=== PATIENT | female | born 1990 | race Caucasian/White ===

== ENCOUNTER 2020-10-02 11:00 | Outpatient (RCR) | payer OTHER, SELFPAY ==
--- NOTE | 2020-11-02 08:14 | MHC.PT.DC ---
[facility] [place] Office [place] Office [place] Office [address] Angel Farmer 140 [facility] [phone] F: [phone] F: [phone] F: [phone] F: [phone] Physical Therapy Discharge Report Diagnosis: Thoracic Spine Pain Date of Surgery: N/A Date of Evaluation: 07/10/20 Date of Discharge: Treatments to Date: 13 Cancellations to Date: 0 No Shows to Date: 0 Discharge Status: Independent with [facility]P Discharge Summary: Pt progressed well over the course of skilled PT making progress on impairments and functional limitations resulting in an improved quality of life. Pt is I with [facility]P and appropriate to d/c to [facility]P at this time. Electronically signed by: Aubrey Salazar, PT Please sign and return to therapist. Thank you for your referral.
== END 2020-11-02 08:15 | disposition home or self-care (01) ==
LOC: HO.PTCHIC 11:00
PROVIDERS: PCP Physician Assistant; Visit Provider Physician Assistant
DX: M54.6 Pain in thoracic spine (principal)
CPT/HCPCS: 97110; 97112

== ENCOUNTER 2021-06-26 18:14 | Outpatient (REF) | payer OTHER, SELFPAY | END 2021-06-26 18:15 | disposition home or self-care (01) | LOC: HO.LNP 18:14 | PROVIDERS: Visit Provider Internal Medicine | DX: Z20.822 Contact with and (suspected) exposure to COVID-19 (principal); J06.9 Acute upper respiratory infection, unspecified | CPT/HCPCS: U0003; U0005 ==

== ENCOUNTER 2021-09-18 08:34 | Outpatient (REF) | payer OTHER, SELFPAY ==
[2021-09-22 13:06] LABS: HPV mRNA E6/E7 rflx Not Detected (Not Detected)
== END 2021-09-18 08:35 | disposition home or self-care (01) ==
LOC: HO.LAB 08:34
PROVIDERS: PCP Physician Assistant; Visit Provider Advanced Practice Midwife
DX: Z01.419 Encounter for gynecological examination (general) (routine) without abnormal findings (principal); Z11.51 Encounter for screening for human papillomavirus (HPV)
CPT/HCPCS: 87624; 88142

== ENCOUNTER → 2022-11-12 12:42 | Outpatient (BNVA) | payer OTHER, SELFPAY | PROVIDERS: PCP Physician Assistant; Visit Provider Advanced Practice Midwife | DX: Z13.89 Encounter for screening for other disorder (principal) ==

== ENCOUNTER 2023-12-03 08:40 | Outpatient (AMB) | payer OTHER, SELFPAY ==
[2023-12-03 09:26] VITALS: BP 112/76; PULSE 99; TEMP 37.7; O2SAT 96; BMI 30.9
--- NOTE | 2023-12-03 09:26 | AM.OFFWIN_ITS ---
Intake Vital Signs 12/03/23 09:26 Height 5 ft 7 in Weight 197 lb BMI 30.9 BP 112/76 Blood Pressure Location Lt brachial Position Sitting Pulse 99 Pulse Source Pulse Oximeter Temp 99.9 F Temp Source Temporal Artery Scan Pulse Oximetry (%) 96 Intake Visit Reasons: EP fever cough headache chills 531-25 Intake Note: pt is here today for fever cough headache chills started yesterday Patient Tobacco Use Status: Former Tobacco user Quit Date: 2020 Allergies cephalexin [CEPHALEXIN] Allergy (Intermediate, Verified 12/03/23 09:51) HIVES poison marylu extract [POISON MARYLU] Allergy (Unknown, Verified 12/03/23 09:51) RASH ANTIBIOTIC Allergy (Unknown, Uncoded 12/03/23 09:51) UNKNOWN cephlosporins Allergy (Unknown, Uncoded 12/03/23 09:51) hives Medication List - Last Reconciled 12/03/23 by Jose Mina MD bupropion HCl (Wellbutrin XL) 150 mg PO QAM compr.stocking,knee,long,large As directed escitalopram oxalate (Lexapro) 20 mg PO DAILY Do you need a note to return to daycare/school/sports/work: Yes HPI EP fever cough headache chills 531-25 HPI Details 33-year-old female presents to the [facility] for a sick visit. Patient is reporting sudden onset chills, sore throat, headache. Symptoms started less than 24 hours ago. No nausea or vomiting. No family members sick. [facility] Medical History Depression with anxiety PVD (peripheral vascular disease) Surgical History Hx of tonsillectomy Family History Mother Mental health disorder COPD (chronic obstructive pulmonary disease) Colonic polyp Heart attack Father Mental health disorder Sister Colonic polyp Social History Housing: Condominium Alcohol intake: current Alcohol type: beer Patient Tobacco Use Status: Former Tobacco user Quit Date: 2020 Tobacco use type: Cigarette e-Cigarette/Vaping Use: Never Used Second Hand Smoke Exposure: No Current occupational status: employed Current occupation: [employer] Cognitive needs: No Hearing needs: No Vision needs: No Physical Exam Vital Signs: Last Vital Signs Temp 99.9 F 12/03/23 09:26 Pulse 99 12/03/23 09:26 BP 112/76 12/03/23 09:26 Pulse Ox 96 12/03/23 09:26 BMI result Body Mass Index 30.9 Const General: cooperative and healthy appearing Nutritional Appearance: well nourished Orientation/consciousness: patient oriented x3 Limitations: no limitations HEENT Head: Yes normal to inspection Eyes General: appearance normal, both eyes and all related structures Neck Neck: Yes normal visual inspection Chest Chest palpation & inspection: normal palpation of entire chest wall Resp Effort & Inspection: normal respiratory effort Neuro General: patient oriented x3 Assessment & Plan Assessment & Plan (1) Influenza: Code(s): J11.1 - Influenza due to unidentified influenza virus with other respiratory manifestations Plan: Will call with the results of the viral swab. Tamiflu called in. Tylenol for aches and pains. If symptoms not better to follow-up here. Coding Level of Care Code Est Pt Level 3 (64695) Diagnoses Influenza J11.1
== END 2023-12-03 10:23 | disposition home or self-care (01) ==
PROVIDERS: PCP Physician Assistant; Visit Provider Internal Medicine
DX: J11.1 Influenza due to unidentified influenza virus with other respiratory manifestations (principal)
CPT/HCPCS: 99213

== ENCOUNTER 2023-12-03 11:36 | Outpatient (REF) | payer OTHER, SELFPAY ==
[2023-12-03 12:37] LABS: Influenza A PCR POSITIVE (Negative); Influenza B PCR NEGATIVE (Negative); Resp Syncy Virus RNA Qual PCR NEGATIVE (Negative); SARS COV2 PCR INHOUSE NEGATIVE (Negative)
== END 2023-12-03 11:37 | disposition home or self-care (01) ==
LOC: HO.HMGCLNP 11:36
PROVIDERS: Visit Provider Internal Medicine
DX: Z11.52 Encounter for screening for COVID-19 (principal); Z20.822 Contact with and (suspected) exposure to COVID-19; R09.89 Other specified symptoms and signs involving the circulatory and respiratory systems
CPT/HCPCS: 0241U

== ENCOUNTER 2024-03-12 08:15 | Outpatient (RCR) | payer OTHER, SELFPAY ==
[2024-03-10 13:16] VITALS: BMI 33.1
[2024-03-10 13:17] VITALS: BP 120/70; PULSE 68; TEMP 37.2
--- NOTE | 2024-03-10 13:58 | PC.ADMIT ---
Patient is a 33 year old female who was referred/mandated by her employer to attend treatment for alcohol use and mental health. Patient reportedly showed up to work intoxicated 1.5 months ago. She is employed by [employer] for the past 6 years. Patient reports she binge drinks for many years and longest periods of sobriety was 6 months. Denied any history of withdrawal sxs after she abstains from drinking. Drinking 10 shots of alcohol a few times a week. Reports she takes days off. VS 120/70 P 68. No diaphoresis, no tremors, no nausea, no vomiting, no headache. She was given education written and verbal about long and short term effects of use. Also encouraged her to attend AA meetings while in the program for more support. Patient is alert and oriented x4. She presents with depressed mood and affect. Denied SI. She was given a copy of her safety plan if needed. Thoughts are clear and logical. Medications reconciled with patient and patient's pharmacy. She reports taking medications as prescribed.
--- NOTE | 2024-03-11 15:56 | HO.PHP ---
[facility] met with pt to discuss potentially going to [facility] for more extensive substance support. Pt acknowledged she may need a higher level of care for her addiction, reports she finds PHP helpful but recognizes she needs more skills and treatment around her addiction to prevent relapse. Pt provided information on [facility], stated she will think about it tonight and possibly call today or tomorrow to ask questions. Pt forthcoming about her addiction and level of cravings. Pt also considering if she will apply for FMLA so she can focus on sobriety. Pt acknowledged this is her first time seeking recovery support for her 20 year long addiction to alcohol.
--- NOTE | 2024-03-11 16:17 | HO.PHP ---
Client's case has been opened and reviewed in teams.
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
--- NOTE | 2024-03-12 11:38 | PC.NURSE ---
Odalis is discharging from [facility] today. She is going to go to [facility] starting next Friday for more support and may come back to [facility] if needed. She feels ready for discharge. No safety concerns, no SI. Reviewed discharge paperwork with discharge medications. Patient denied any medication side effects. Medication education provided.
--- NOTE | 2024-03-19 09:35 | HO.PHP ---
PHP staff member received a phone call from Eduardo at [facility] with Odalis's upcoming OP provider meetings. Odalis's Intake appointment was scheduled for March 31, 2024 at 10 AM with Elaine Trevizo at [address] [place] [address] in [place], [place]. Odalis's med provider appointment is schedueled for April 21, 2024 at 11 AM with Blossom Alarcon via telehealth. PHP staff member contacted Odalis and left a voicemail with that information. PHP staff member informed her to contact the clinician back with any additional questions.
== END 2024-03-12 23:59 | disposition home or self-care (01) ==
LOC: HO.PHPA 08:15
PROVIDERS: Visit Provider Psychiatry & Neurology Psychiatry
DX: F43.10 Post-traumatic stress disorder, unspecified (principal); F32.A Depression, unspecified; F10.20 Alcohol dependence, uncomplicated; Z63.4 Disappearance and death of family member
CPT/HCPCS: 90791; 90853

== ENCOUNTER 2024-03-29 14:58 | Outpatient (AMB) | payer OTHER, SELFPAY ==
[2024-03-29 15:12] VITALS: BP 114/74; PULSE 83; O2SAT 97; BMI 32.3
--- NOTE | 2024-03-29 15:12 | MHC.PC.OV ---
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 Accompanied by: Self / Same As Patient Allergies cephalexin [CEPHALEXIN] Allergy (Intermediate, Verified 03/29/24 15:31) HIVES poison marylu extract [POISON MARYLU] Allergy (Unknown, Verified 03/29/24 15:31) RASH ANTIBIOTIC Allergy (Unknown, Uncoded 03/29/24 15:31) UNKNOWN cephlosporins Allergy (Unknown, Uncoded 03/29/24 15:31) hives Medication List - Last Reconciled 03/29/24 by Emmanuel Grey PA-C bupropion HCl XL (Wellbutrin XL) 150 mg PO QAM escitalopram oxalate (Lexapro) 20 mg PO DAILY naltrexone 50 mg PO .HS Tobacco use date assessed: 03/29/24 Dental Screening Dental Screen Date: 03/29/24 Did you have a dental visit in the last 12 months?: Yes Did you have a dental problem in the last 6 months where you did not have access to dental care?: No Was dental information given to patient?: Patient has dentist HPI Annual exam/med review HPI Details Patient is a 33-year-old female here today for routine annual physical.? Patient has a past medical history significant for generalized anxiety disorder, polyarthralgia. Alcohol use disorder: recently had a relapse and now is 21 days sober. Now in outpatient program seeking help for alcohol use disorder. Now on naltrexone which has been very effective for her .. Anxiety: Has restarted on Lexapro for her anxiety which has been working well to reduce her anxious symptoms. She is speaking with a mental therapist. .. Obese : Noted weight gain since restarting SSRI therapy. She does understand she needs to be more physically active and adapt to better eating habits to reduce her weight. .. 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 declines COVID vaccine. Declines flu vaccine PFSH Medical History PVD (peripheral vascular disease) Depression with anxiety Surgical History Hx of tonsillectomy Family History Mother Mental health disorder COPD (chronic obstructive pulmonary disease) Colonic polyp Heart attack Father Mental health disorder Sister Colonic polyp Social History (Updated 03/29/24 @ 15:36 by Emmanuel Grey PA-C) Household Members: Significant Other and Children [facility] Alcohol intake: former Year quit: 2023 Patient Tobacco Use Status: Former Tobacco user Tobacco use type: Cigarette Cigarettes Per Day: 2 e-Cigarette/Vaping Use: Never Used Second Hand Smoke Exposure: No Current occupational status: employed Current occupation: [employer] Cognitive needs: No Hearing needs: No Vision needs: No Questionnaire PHQ-9 Over the last 2 weeks, how often have you been bothered by any of the following problems? 1. Little interest or pleasure in doing things: not at all 2. Feeling down, depressed, or hopeless: not at all 3. Trouble falling or staying asleep, or sleeping too much: not at all 4. Feeling tired or having little energy: not at all 5. Poor appetite or overeating: not at all 6. Feeling bad about yourself - or that you are a failure or have let yourself or your family down: not at all 7. Trouble concentrating on things, such as reading the newspaper or watching television: several days 8. Moving or speaking so slowly that other people could have noticed. Or the opposite - being so fidgety or restless that you have been moving around a lot more than usual: several days 9. Thoughts that you would be better off or of hurting yourself in some way: not at all Total score: 2 Depression Screening Interpretation: Positive Depression Screening Done: Yes 16883 - PHQ-9 Billing: Yes Source: Developed by Drs. Alonzo Green, Susi Garcia, Sathish Mcclain and colleagues, with an educational suly from [employer]. Thrive Questionnaire Date Thrive assessed: 03/29/24 I am a: Patient What is your living situation today?: I have a steady place to live Within the past 12 months, did the food you bought not last and you didn't have the money to get more?: Never true Within the past 12 months, did you worry whether your food would run out before you got money to buy more?: Never true Do you have trouble paying for medicines?: No Do you have trouble getting transportation to medical appointments?: No Do you have trouble paying your heating and electricity bill?: No Do you have trouble taking care of your child, family member or friend?: No Do you have trouble with day-to-day activities such as bathing, preparing meals, shopping, managing finances, etc.?: No Are you currently unemployed and looking for a job?: No Are you interested in more education?: No Please select the resources that you would like help with: None Currently or been in a relationship where the following occur: no concerns reported THRIVE Score: 0 AUDIT C Alcohol Use Questionnaire (AUDIT-C) 1. How often do you have a drink containing alcohol?: Never Total Score: 0 PERRY-7 AMB Questionnaire PERRY-7 Date PERRY - 7 assessed: 03/29/24 Feeling nervous, anxious, or on edge: 1 = Several days Not being able to stop or control worryin = Not at all Worrying too much about different things: 0 = Not at all Trouble relaxin = Several days Being so restless that it is hard to sit still: 1 = Several days Becoming easily annoyed or irritable: 0 = Not at all Feeling afraid as if something awful might happen: 0 = Not at all Total PERRY-7 score (0-4 normal; 5-9 mild; 10-14 moderate; 15-21 severe): 3 Source: Developed by Drs. Alonzo Green, Susi Garcia, Sathish Mcclain and colleagues, with an educational suly from [employer]. PERRY-7 Assessment Billing PERRY-7 Assessment Tool: PERRY-7 Assessment 12293 Review of Systems Const Denies body aches, Denies chills, Denies excessive sweating, Denies fatigue, Denies fever(s) and Denies headache(s) Eyes Denies blurry vision ENT Denies dysphagia, Denies vertigo, Denies dizziness, Denies headache(s), Denies hearing loss and Denies tinnitus Card Denies chest pain, Denies chest pain with activity, Denies syncope, Denies irregular heart rhythm and Denies dyspnea Resp Denies chest congestion, Denies cough, Denies hemoptysis, Denies dyspnea and Denies wheezing GI Denies abdominal pain, Denies melena, Denies hematochezia, Denies coffee ground emesis, Denies dysphagia, Denies diarrhea, Denies nausea and Denies vomiting Denies urinary frequency, Denies dysuria, Denies urinary hesitancy and Denies urinary urgency Musc Denies arthralgias, Denies limited range of motion, Denies muscle cramps and Denies muscle weakness Skin/Breast Denies rash and Denies skin ulcer Neuro Denies Abnormal speech present, Denies confusion, Denies vertigo, Denies dizziness, Denies syncope, Denies headache(s), Denies memory loss and Denies seizure-like activity Psych Denies anxiety, Denies confusion, Denies depression, Denies memory loss, Denies panic attacks and Denies paranoia Endo Denies excessive sweating, Denies fatigue, Denies flushing, Denies polydipsia and Denies polyuria Aller/Immun Denies wheezing Physical exam (Primary Care) Vital Signs: Last Vital Signs Pulse 83 03/29/24 15:12 BP 114/74 03/29/24 15:12 Pulse Ox 97 03/29/24 15:12 Oxygen Delivery Method Room Air 03/29/24 15:12 BMI result Body Mass Index 32.3 Tobacco/Smoking Status: Tobacco use Status Tobacco use date assessed 03/29/24 03/29/24 15:21 Patient Tobacco Use Status Former Tobacco user 03/29/24 15:36 Tobacco use type Cigarette 03/29/24 15:36 e-Cigarette/Vaping Use Never Used 03/29/24 15:36 PHQ-9: PHQ-9 Score PHQ-9: Total score 2 03/29/24 15:33 Depression Screening Interpretation: Positive Thrive Assessment: Date of Thrive Assessment Date Thrive assessed 03/29/24 03/29/24 15:21 Currently or been in a relationship where the following occur: no concerns reported Const General: cooperative, comfortable, no acute distress, alert and awake; No confusion Orientation/consciousness: oriented to person, oriented to place, patient oriented x3 and No confusion HENMT Head: Yes normocephalic Ears: external ears normal and TM's normal bilaterally Face and sinus: No sinus tenderness Mouth: Normal oral and palatal mucosa present and tongue normal Teeth and gingiva: dentition normal and gingiva normal Throat: Yes posterior oropharynx normal, Yes tonsils normal and Yes uvula midline Eyes Conjunctivae: conjunctivae normal Sclerae: sclerae normal Pupils: Equal, round and reactive pupils present EOM: EOMs intact bilaterally Direct Ophthalmoscopy: No no photophobia Neck Neck: Yes no lymphadenopathy, No tender and Yes no JVD Thyroid: Thyroid normal Carotids: no bruits Chest Chest palpation & inspection: no tenderness Resp Effort & Inspection: normal respiratory effort, no audible wheezes, not labored and no stridor Auscultation: no crackles, no rales, no rhonchi and no wheezes Cardio Jugular venous distension: no JVD Rate: regular rate, not bradycardic and not tachycardic Rhythm: regular rhythm Bruits: no carotid bruits Peripheral pulses: Peripheral pulses 2+ throughout GI Inspection: Yes normal to inspection, No abdominal wall ecchymosis and No visible herniation Palpation (GI): Soft to palpation, nontender, no guarding, not rigid and No hepatosplenomegaly present Auscultation: normoactive bowel sounds General: Yes no CVA tenderness Back/Spine/Pelvis Back: no CVA tenderness and No back tenderness Cervical Spine: cervical ROM normal Thoracic/Lumbar Spine: thoracic and lumbar spine normal to inspection, straight leg raise negative bilaterally, No thoraco-lumbar ROM limited and No lumbar spinal tenderness Skin Lesions: no lesions Rashes: no rashes Wounds: no wounds Neuro General: oriented to person, oriented to place, patient oriented x3, CN's II-XI intact bilaterally and No confusion Cranial nerves: Yes Equal, round and reactive pupils present and Yes Normal accommodation reflex present Cognition (Neuro): normal cognition Speech: No Abnormal speech present Gait exam (Neuro): Normal gait present Motor exam (neuro): 5/5 motor strength present throughout Extrem Right upper extremity: full ROM; no cyanosis Left upper extremity: full ROM; no cyanosis Right lower extremity: no edema Left lower extremity: no edema Psych Appearance: grossly normal Mental Status: mental status grossly normal Affect: normal affect Attitude: cooperative Thought process: Normal thought process present Assessment and Plan Assessment & Plan (1) Annual physical exam: Code(s): Z00.00 - Encounter for general adult medical examination without abnormal findings (2) MDD (major depressive disorder), recurrent episode, moderate: Code(s): F33.1 - Major depressive disorder, recurrent, moderate Plan: Patient's PHQ-9 score positive for moderate depression which has been in long-term condition for her. Patient reports her depression has been much better since starting with Wellbutrin. Denies any SI or HI (3) PERRY (generalized anxiety disorder): Code(s): F41.1 - Generalized anxiety disorder Plan: Patient's PERRY-7 score positive for anxiety which has been an long-term existing condition for her. She continues on SSRI therapy recent addition of Wellbutrin which has helped her anxiety a lot. (4) Obese: Code(s): E66.9 - Obesity, unspecified Qualifiers: Body mass index: BMI 31.0-31.9 Obesity classification: adult class 1 (BMI 30 - 34.9) Obesity type: due to excess calories Serious obesity comorbidity presence: without serious comorbidity Qualified Code(s): E66.09 - Other obesity due to excess calories; Z68.31 - Body mass index [BMI] 31.0-31.9, adult Plan: Weight loss noted since last office visit. Patient does understand her BMI is over 30 and will work on being more physically active and adapting to better eating habits to reduce her weight. (5) PVD (peripheral vascular disease): Code(s): I73.9 - Peripheral vascular disease, unspecified Plan: Patient does have left lower extremity varicose veins that are not bothersome to her though anesthetics is a problem. She is considering seeing a vascular surgeon. (6) Alcohol use disorder, moderate, dependence: Code(s): F10.20 - Alcohol dependence, uncomplicated Plan: Recently had relapse on alcohol now is in early remission. She is now on naltrexone and going to an outpatient alcohol treatment center. Orders: Orders Ethanol 03/29/24 F10.20 - Alcohol dependence, uncomplicated Comprehensive [place]. Panel Fast 03/29/24 Z13.1 - Encounter for screening for diabetes mellitus Medications: Refilled bupropion HCl XL (Wellbutrin XL) 150 mg PO QAM 30 tabs 6RF F33.1 - Major depressive disorder, recurrent, moderate, F41.1 - Generalized anxiety disorder Patient Instructions: Goal: Maintain sobriety from alcohol, continue to manage her depression and anxiety Barriers: Availability of alcohol. Coding Level of Care Code Est Pt Prev Care [id number]) Diagnoses Annual physical exam Z00.00 MDD (major depressive disorder), recurrent episode, moderate F33.1 PERRY (generalized anxiety disorder) F41.1 Class 1 obesity due to excess calories without serious comorbidity with body mass index (BMI) of 31.0 to 31.9 in adult E66.09; Z68.31 Body mass index: BMI 31.0-31.9 Obesity classification: adult class 1 (BMI 30 - 34.9) Obesity type: due to excess calories Serious obesity comorbidity presence: without serious comorbidity PVD (peripheral vascular disease) I73.9 Alcohol use disorder, moderate, dependence F10.20 Additional Codes PERRY-7 Assessment Billing - PERRY-7 Assessment Tool: PERRY-7 Assessment [id number] ([id number])
== END 2024-03-29 15:46 | disposition home or self-care (01) ==
PROVIDERS: PCP Physician Assistant; Visit Provider Physician Assistant
DX: Z00.00 Encounter for general adult medical examination without abnormal findings (principal); F33.1 Major depressive disorder, recurrent, moderate; I73.9 Peripheral vascular disease, unspecified; E66.01 Morbid (severe) obesity due to excess calories; F10.20 Alcohol dependence, uncomplicated; Z68.31 Body mass index [BMI] 31.0-31.9, adult; F41.1 Generalized anxiety disorder
CPT/HCPCS: 99395

== ENCOUNTER 2024-11-01 10:56 | Outpatient (AMB) | payer OTHER, SELFPAY ==
--- NOTE | 2024-11-01 11:18 | MHC.PC.OV ---
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 Accompanied by: Self / Same As Patient Allergies cephalexin [CEPHALEXIN] Allergy (Intermediate, Verified 11/01/24 11:46) HIVES poison marylu extract [POISON MARYLU] Allergy (Unknown, Verified 11/01/24 11:46) RASH ANTIBIOTIC Allergy (Unknown, Uncoded 11/01/24 11:46) UNKNOWN cephlosporins Allergy (Unknown, Uncoded 11/01/24 11:46) hives Medication List - Last Reconciled 11/01/24 by Emmanuel Grey PA-C bupropion HCl XL (Wellbutrin XL) 150 mg PO QAM escitalopram oxalate (Lexapro) 20 mg PO DAILY naltrexone 50 mg PO .QHS 30 days Tobacco use date assessed: 11/01/24 Dental Screening Dental Screen Date: 11/01/24 Did you have a dental visit in the last 12 months?: Yes Did you have a dental problem in the last 6 months where you did not have access to dental care?: No Was dental information given to patient?: Patient has dentist HPI f/u anxiety/ETOH HPI Details Patient is a 34-year-old female here today for a follow-up visit. ? Patient has a past medical history significant for generalized anxiety disorder, polyarthralgia. Alcohol use disorder: recently had a relapse and now is a few weeks sober.. She has graduated from outpatient alcohol use disorder program.. Continues on naltrexone which has been very effective for her .. Anxiety: Has restarted on Lexapro for her anxiety which has been working well to reduce her anxious symptoms. She is speaking with a mental therapist. .. Obese : Noted weight gain since restarting SSRI therapy. She does understand she needs to be more physically active and adapt to better eating habits to reduce her weight. FOR[facility]LY [facility], [facility] Medical History PVD (peripheral vascular disease) Depression with anxiety Surgical History Hx of tonsillectomy Family History Mother Mental health disorder COPD (chronic obstructive pulmonary disease) Colonic polyp Heart attack Father Mental health disorder Sister Colonic polyp Social History Household Members: Significant Other and Children [facility] Alcohol intake: former Year quit: 2023 Patient Tobacco Use Status: Former Tobacco user Tobacco use type: Cigarette Cigarettes Per Day: 2 e-Cigarette/Vaping Use: Never Used Second Hand Smoke Exposure: No service: No Current occupational status: employed Current occupation: [employer] Cognitive needs: No Hearing needs: No Vision needs: No Questionnaire PHQ-9 Over the last 2 weeks, how often have you been bothered by any of the following problems? 1. Little interest or pleasure in doing things: not at all 2. Feeling down, depressed, or hopeless: not at all 3. Trouble falling or staying asleep, or sleeping too much: not at all 4. Feeling tired or having little energy: not at all 5. Poor appetite or overeating: not at all 6. Feeling bad about yourself - or that you are a failure or have let yourself or your family down: not at all 7. Trouble concentrating on things, such as reading the newspaper or watching television: not at all 8. Moving or speaking so slowly that other people could have noticed. Or the opposite - being so fidgety or restless that you have been moving around a lot more than usual: not at all 9. Thoughts that you would be better off or of hurting yourself in some way: not at all Total score: 0 Depression Screening Interpretation: Negative Depression Screening Done: Yes 08038 - PHQ-9 Billing: Yes Source: Developed by Drs. Alonzo Green, Susi Garcia, Sathish Mcclain and colleagues, with an educational suly from [employer]. Thrive Questionnaire Date Thrive assessed: 11/01/24 I am a: Patient What is your living situation today?: I have a steady place to live Within the past 12 months, did the food you bought not last and you didn't have the money to get more?: Never true Within the past 12 months, did you worry whether your food would run out before you got money to buy more?: Never true Do you have trouble paying for medicines?: No Do you have trouble getting transportation to medical appointments?: No Do you have trouble paying your heating and electricity bill?: No Do you have trouble taking care of your child, family member or friend?: No Do you have trouble with day-to-day activities such as bathing, preparing meals, shopping, managing finances, etc.?: No Are you currently unemployed and looking for a job?: No Are you interested in more education?: No Please select the resources that you would like help with: None Currently or been in a relationship where the following occur: No concerns reported THRIVE Score: 0 AUDIT C Alcohol Use Questionnaire (AUDIT-C) 1. How often do you have a drink containing alcohol?: Never 3. How often do you have six or more drinks on one occasion?: Never Total Score: 0 PERRY-7 AMB Questionnaire PERRY-7 Date PERRY - 7 assessed: 11/01/24 Feeling nervous, anxious, or on edge: 0 = Not at all Not being able to stop or control worryin = Not at all Worrying too much about different things: 0 = Not at all Trouble relaxin = Not at all Being so restless that it is hard to sit still: 0 = Not at all Becoming easily annoyed or irritable: 0 = Not at all Feeling afraid as if something awful might happen: 0 = Not at all Total PERRY-7 score (0-4 normal; 5-9 mild; 10-14 moderate; 15-21 severe): 0 Source: Developed by Drs. Alonzo Green, Susi Garcia, Sathish Mcclain and colleagues, with an educational suly from [employer]. PERRY-7 Assessment Billing PERRY-7 Assessment Tool: PERRY-7 Assessment 25716 Review of Systems Const Denies headache(s) Eyes Denies loss of vision ENT Denies vertigo, Denies dizziness, Denies headache(s) and Denies sore throat Card Denies chest pain, Denies leg edema and Denies lightheadedness Resp Denies cough, Denies hemoptysis and Denies wheezing GI Denies abdominal pain, Denies melena, Denies constipation, Denies diarrhea and Denies vomiting Denies urinary frequency, Denies dysuria and Denies urinary urgency Musc Denies arthralgias, Denies joint swelling, Denies numbness and Denies tingling Neuro Denies Abnormal speech present, Denies behavioral changes, Denies vertigo, Denies dizziness, Denies headache(s), Denies loss of vision, Denies memory loss, Denies numbness and Denies tingling Psych Denies anxiety, Denies behavioral changes, Denies depression, Denies memory loss and Denies panic attacks Kenney/Lymph Denies easy bleeding and Denies easy bruising Aller/Immun Denies wheezing Physical exam (Primary Care) Vital Signs: Last Vital Signs Temp 97.1 F 11/01/24 11:21 Pulse 68 11/01/24 11:21 BP 112/76 11/01/24 11:21 Pulse Ox 98 11/01/24 11:21 Oxygen Delivery Method Room Air 11/01/24 11:21 BMI result Body Mass Index 32.9 BMI Assessment/Plan discussion: High BMI High, discussed plan: lifestyle, weight reduction, dietary and physical activity Tobacco/Smoking Status: Tobacco use Status Tobacco use date assessed 11/01/24 11/01/24 11:27 Patient Tobacco Use Status Former Tobacco user 11/01/24 11:19 Tobacco use type Cigarette 11/01/24 11:19 e-Cigarette/Vaping Use Never Used 11/01/24 11:19 PHQ-9: PHQ-9 Score PHQ-9: Total score 0 11/01/24 11:27 Depression Screening Interpretation: Negative Thrive Assessment: Date of Thrive Assessment Date Thrive assessed 11/01/24 11/01/24 11:27 Currently or been in a relationship where the following occur: No concerns reported Const General: healthy appearing, no acute distress, alert and awake Nutritional Appearance: well nourished Orientation/consciousness: oriented to person, oriented to place and oriented to time HENMT Ears: TM's normal bilaterally General nose exam: Normal nasal mucous membranes and turbinates present Eyes Conjunctivae: conjunctivae normal Sclerae: sclerae normal Pupils: Equal, round and reactive pupils present Neck Neck: Yes no lymphadenopathy and Yes no JVD Thyroid: Thyroid normal Carotids: no bruits Resp Effort & Inspection: normal respiratory effort and not tachypneic Auscultation: no crackles, no rales, no rhonchi and no wheezes Cardio Rate: regular rate Rhythm: regular rhythm Heart sounds: no murmurs and normal S1 and S2 GI Palpation (GI): Soft to palpation, nontender, no hepatomegaly and no splenomegaly Auscultation: normal bowel sounds Skin General skin exam: no rashes or lesions noted and dry skin Neuro General: oriented to person, oriented to place and oriented to time Cranial nerves: Yes Equal, round and reactive pupils present Speech: No Abnormal speech present Gait exam (Neuro): Normal gait present Motor exam (neuro): no tremor noted Extrem Right upper extremity: full ROM Left upper extremity: full ROM Right lower extremity: full ROM; no edema Left lower extremity: full ROM; no edema Psych Mental Status: mental status grossly normal Speech and movement: Normal speech and movement present Affect: normal affect Attitude: cooperative Thought process: Normal thought process present Coding Level of Care Code Est Pt Level 4 (52842) Diagnoses PERRY (generalized anxiety disorder) F41.1 Alcohol use disorder, moderate, dependence F10.20 MDD (major depressive disorder), recurrent episode, moderate F33.1 Class 1 obesity E66.811 Additional Codes PERRY-7 Assessment Billing - PERRY-7 Assessment Tool: PERRY-7 Assessment 92194 ([id number]) PHQ-9 - 12852 - PHQ-9 Billing: Yes ([id number]) Assessment & Plan Assessment & Plan (1) PERRY (generalized anxiety disorder): Code(s): F41.1 - Generalized anxiety disorder Category: Medical Plan: Patient reports her anxiety and depression has been well controlled with current doses of mental health medications. She is speaking with a mental health therapist quite regularly. (2) Alcohol use disorder, moderate, dependence: Code(s): F10.20 - Alcohol dependence, uncomplicated Category: Medical Plan: Has been in remission though relapses from time to time. She reports being an alcohol group she recently graduated from. She continues with naltrexone as well. (3) MDD (major depressive disorder), recurrent episode, moderate: Code(s): F33.1 - Major depressive disorder, recurrent, moderate Category: Medical Plan: Patient's depression has been well controlled on current doses of mental health medications. She does speak with a mental health therapist quite regularly. (4) Class 1 obesity: Code(s): E66.811 - Obesity, class 1 Category: Medical Plan: Patient does understand her BMI is over 30 and will work on being more physically active and adapting to better eating habits to reduce her weight
[2024-11-01 11:21] VITALS: BP 112/76; PULSE 68; TEMP 36.2; O2SAT 98; BMI 32.9
== END 2024-11-01 11:54 | disposition home or self-care (01) ==
PROVIDERS: PCP Physician Assistant; Visit Provider Physician Assistant
DX: F33.1 Major depressive disorder, recurrent, moderate (principal); F10.20 Alcohol dependence, uncomplicated; E66.811 Obesity, class 1; Z68.32 Body mass index [BMI] 32.0-32.9, adult; F41.1 Generalized anxiety disorder

== ENCOUNTER → 2024-11-01 10:56 | Outpatient (BNVA) | payer OTHER, SELFPAY | PROVIDERS: PCP Physician Assistant; Visit Provider Physician Assistant | DX: F41.1 Generalized anxiety disorder (principal); F33.1 Major depressive disorder, recurrent, moderate; E66.811 Obesity, class 1; Z68.32 Body mass index [BMI] 32.0-32.9, adult; F10.20 Alcohol dependence, uncomplicated; Z79.899 Other long term (current) drug therapy | CPT/HCPCS: 96127 ==

== ENCOUNTER 2025-03-30 09:21 | Outpatient (AMB) | payer OTHER, SELFPAY ==
--- NOTE | 2025-03-30 09:27 | A.OFFPC_ITS ---
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 Patient has a past medical history significant for generalized anxiety disorder, polyarthralgia. Alcohol use disorder: Patient reports she is still drinking a few times a week. Has had a history of severe alcohol use disorder. She is not taking any medications for her mental health at this time. .. Anxiety: Again not taking any medication for her mental health at this time. She reports she feels better. She feels she is less numb . Continues to speak with a mental health therapist quite regularly. .. Class 1 obesity: Has lost weight since last office visit, likely related to stopping her mental health medication. 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 declines COVID vaccine. Declines flu vaccine PFSH Medical History PVD (peripheral vascular disease) Depression with anxiety Surgical History Hx of tonsillectomy Family History Mother Mental health disorder COPD (chronic obstructive pulmonary disease) Colonic polyp Heart attack Father Mental health disorder Sister Colonic polyp Social History (Updated 03/30/25 @ 10:01 by Emmanuel Grey PA-C) Household Members: Significant Other and Children Housing: Condominium Alcohol intake: current Alcohol intake frequency: a few times a week Patient Tobacco Use Status: Current someday Tobacco user Tobacco use type: Cigarette Cigarettes Per Day: 2 e-Cigarette/Vaping Use: Never Used Second Hand Smoke Exposure: No service: No Current occupational status: employed Current occupation: [employer] Cognitive needs: No Hearing needs: No Vision needs: No Questionnaire PHQ-9 Over the last 2 weeks, how often have you been bothered by any of the following problems? 1. Little interest or pleasure in doing things: not at all 2. Feeling down, depressed, or hopeless: not at all 3. Trouble falling or staying asleep, or sleeping too much: not at all 4. Feeling tired or having little energy: several days 5. Poor appetite or overeating: not at all 6. Feeling bad about yourself - or that you are a failure or have let yourself or your family down: not at all 7. Trouble concentrating on things, such as reading the newspaper or watching television: several days 8. Moving or speaking so slowly that other people could have noticed. Or the opposite - being so fidgety or restless that you have been moving around a lot more than usual: not at all 9. Thoughts that you would be better off or of hurting yourself in some way: not at all Total score: 2 Depression Screening Interpretation: Negative Depression Screening Done: Yes 70583 - PHQ-9 Billing: Yes Source: Developed by Drs. Alonzo Green, Susi Garcia, Sathish Mcclain and colleagues, with an educational suly from [employer]. Thrive Questionnaire Date Thrive assessed: 03/30/25 I am a: Patient What is your living situation today?: I have a steady place to live Within the past 12 months, did the food you bought not last and you didn't have the money to get more?: Never true Within the past 12 months, did you worry whether your food would run out before you got money to buy more?: Never true Do you have trouble paying for medicines?: No Do you have trouble getting transportation to medical appointments?: No Do you have trouble paying your heating and electricity bill?: No Do you have trouble taking care of your child, family member or friend?: No Do you have trouble with day-to-day activities such as bathing, preparing meals, shopping, managing finances, etc.?: No Are you currently unemployed and looking for a job?: No Are you interested in more education?: No Please select the resources that you would like help with: None Currently or been in a relationship where the following occur: No concerns reported THRIVE Score: 0 AUDIT C Alcohol Use Questionnaire (AUDIT-C) 1. How often do you have a drink containing alcohol?: Monthly or less 2. How many drinks containing alcohol do you have on a typical day when you are drinking?: 5 or 6 3. How often do you have six or more drinks on one occasion?: Monthly Total Score: 5 PERRY-7 AMB Questionnaire PERRY-7 Date PERRY - 7 assessed: 03/30/25 Feeling nervous, anxious, or on edge: 0 = Not at all Not being able to stop or control worryin = Not at all Worrying too much about different things: 0 = Not at all Trouble relaxin = Not at all Being so restless that it is hard to sit still: 0 = Not at all Becoming easily annoyed or irritable: 0 = Not at all Feeling afraid as if something awful might happen: 0 = Not at all Total PERRY-7 score (0-4 normal; 5-9 mild; 10-14 moderate; 15-21 severe): 0 Source: Developed by Drs. Alonzo Green, Susi Garcia, Sathish Mcclain and colleagues, with an educational suly from [employer]. PERRY-7 Assessment Billing PERRY-7 Assessment Tool: PERRY-7 Assessment 70061 Review of Systems Const Denies body aches, Denies chills, Denies excessive sweating, Denies fatigue, Denies fever(s) and Denies headache(s) Eyes Denies blurry vision ENT Denies dysphagia, Denies vertigo, Denies dizziness, Denies headache(s), Denies hearing loss and Denies tinnitus Card Denies chest pain, Denies chest pain with activity, Denies syncope, Denies irregular heart rhythm and Denies dyspnea Resp Denies chest congestion, Denies cough, Denies hemoptysis, Denies dyspnea and Denies wheezing GI Denies abdominal pain, Denies melena, Denies hematochezia, Denies coffee ground emesis, Denies dysphagia, Denies diarrhea, Denies nausea and Denies vomiting Denies urinary frequency, Denies dysuria, Denies urinary hesitancy and Denies urinary urgency Musc Denies arthralgias, Denies limited range of motion, Denies muscle cramps and Denies muscle weakness Skin/Breast Denies rash and Denies skin ulcer Neuro Denies Abnormal speech present, Denies confusion, Denies vertigo, Denies dizziness, Denies syncope, Denies headache(s), Denies memory loss and Denies seizure-like activity Psych Denies anxiety, Denies confusion, Denies depression, Denies memory loss, Denies panic attacks and Denies paranoia Endo Denies excessive sweating, Denies fatigue, Denies flushing, Denies polydipsia and Denies polyuria Aller/Immun Denies wheezing Physical exam (Primary Care) Vital Signs: Last Vital Signs Temp 97.3 F 03/30/25 09:47 Pulse 72 03/30/25 09:47 BP 110/70 03/30/25 09:47 Pulse Ox 98 03/30/25 09:47 Oxygen Delivery Method Room Air 03/30/25 09:47 BMI result Body Mass Index 31.9 BMI Assessment/Plan discussion: High BMI High, discussed plan: lifestyle, weight reduction, dietary and physical activity Tobacco/Smoking Status: Tobacco use Status Tobacco use date assessed 11/01/24 03/30/25 09:27 Patient Tobacco Use Status Former Tobacco user 03/30/25 09:27 Tobacco use type Cigarette 03/30/25 09:27 e-Cigarette/Vaping Use Never Used 03/30/25 09:27 PHQ-9: PHQ-9 Score PHQ-9: Total score 2 03/30/25 09:31 Depression Screening Interpretation: Negative Thrive Assessment: Date of Thrive Assessment Date Thrive assessed 03/30/25 03/30/25 09:31 Currently or been in a relationship where the following occur: No concerns reported Const General: cooperative, comfortable, no acute distress, alert and awake; No confusion Orientation/consciousness: oriented to person, oriented to place, patient oriented x3 and No confusion HENMT Head: Yes normocephalic Ears: external ears normal and TM's normal bilaterally Face and sinus: No sinus tenderness Mouth: Normal oral and palatal mucosa present and tongue normal Teeth and gingiva: dentition normal and gingiva normal Throat: Yes posterior oropharynx normal, Yes tonsils normal and Yes uvula midline Eyes Conjunctivae: conjunctivae normal Sclerae: sclerae normal Pupils: Equal, round and reactive pupils present EOM: EOMs intact bilaterally Direct Ophthalmoscopy: No no photophobia Neck Neck: Yes no lymphadenopathy, No tender and Yes no JVD Thyroid: Thyroid normal Carotids: no bruits Chest Chest palpation & inspection: no tenderness Resp Effort & Inspection: normal respiratory effort, no audible wheezes, not labored and no stridor Auscultation: no crackles, no rales, no rhonchi and no wheezes Cardio Jugular venous distension: no JVD Rate: regular rate, not bradycardic and not tachycardic Rhythm: regular rhythm Bruits: no carotid bruits Peripheral pulses: Peripheral pulses 2+ throughout GI Inspection: Yes normal to inspection, No abdominal wall ecchymosis and No visible herniation Palpation (GI): Soft to palpation, nontender, no guarding, not rigid and No hepatosplenomegaly present Auscultation: normoactive bowel sounds General: Yes no CVA tenderness Back/Spine/Pelvis Back: no CVA tenderness and No back tenderness Cervical Spine: cervical ROM normal Thoracic/Lumbar Spine: thoracic and lumbar spine normal to inspection, straight leg raise negative bilaterally, No thoraco-lumbar ROM limited and No lumbar spinal tenderness Skin Lesions: no lesions Rashes: no rashes Wounds: no wounds Neuro General: oriented to person, oriented to place, patient oriented x3, CN's II-XI intact bilaterally and No confusion Cranial nerves: Yes Equal, round and reactive pupils present and Yes Normal accommodation reflex present Cognition (Neuro): normal cognition Speech: No Abnormal speech present Gait exam (Neuro): Normal gait present Motor exam (neuro): 5/5 motor strength present throughout Extrem Right upper extremity: full ROM; no cyanosis Left upper extremity: full ROM; no cyanosis Right lower extremity: no edema Left lower extremity: no edema Psych Appearance: grossly normal Mental Status: mental status grossly normal Affect: normal affect Attitude: cooperative Thought process: Normal thought process present Coding Level of Care Code Est Pt Prev Care 18-39y(83962) Diagnoses Annual physical exam Z00.00 PERRY (generalized anxiety disorder) F41.1 Alcohol use disorder, moderate, dependence F10.20 MDD (major depressive disorder), recurrent episode, moderate F33.1 Class 1 obesity E66.811 Additional Codes PERRY-7 Assessment Billing - PERRY-7 Assessment Tool: PERRY-7 Assessment 84794 ([id number]) PHQ-9 - 37901 - PHQ-9 Billing: Yes ([id number]) Assessment & Plan Assessment & Plan (1) Annual physical exam: Code(s): Z00.00 - Encounter for general adult medical examination without abnormal findings Category: Medical Plan: As per HPI (2) PERRY (generalized anxiety disorder): Code(s): F41.1 - Generalized anxiety disorder Category: Medical Plan: Patient is seeing a mental health therapist quite regularly. She is now off of all of her psychiatric medication as she self discontinued. She reports she feels well without the medication. (3) Alcohol use disorder, moderate, dependence: Code(s): F10.20 - Alcohol dependence, uncomplicated Category: Medical Plan: Patient has a history of alcohol use disorder, she still reports drinking though a lot last. She is now off of all of her med telehealth medications at this time and reports feeling better. -- >Warned her about alcoholism being a slippery slope and she does understand and will try to manage her drinking. (4) MDD (major depressive disorder), recurrent episode, moderate: Code(s): F33.1 - Major depressive disorder, recurrent, moderate Category: Medical Plan: Again patient is seeing a mental health therapist quite regularly. She is off of her depression medication at this time and reports feeling much better. (5) Class 1 obesity: Code(s): E66.811 - Obesity, class 1 Category: Medical Plan: Patient does understand her BMI is over 30 and will work on being more physically active and adapting to better eating habits to reduce her weight Orders: Orders TSH reflex Free T4 Today E66.811 - Obesity, class 1 Comprehensive [place]. Panel Fast Today Z13.1 - Encounter for screening for diabetes mellitus Complete Blood Count no Diff Today Z13.1 - Encounter for screening for diabetes mellitus
[2025-03-30 09:47] VITALS: BP 110/70; PULSE 72; TEMP 36.3; O2SAT 98; BMI 31.9
== END 2025-03-30 10:15 | disposition home or self-care (01) ==
LOC: HO.HMCH 09:22
PROVIDERS: PCP Physician Assistant; Visit Provider Physician Assistant
DX: Z00.00 Encounter for general adult medical examination without abnormal findings (principal); F10.20 Alcohol dependence, uncomplicated; F33.1 Major depressive disorder, recurrent, moderate; E66.811 Obesity, class 1; Z68.31 Body mass index [BMI] 31.0-31.9, adult; F41.1 Generalized anxiety disorder

== ENCOUNTER → 2025-03-30 09:21 | Outpatient (BNVA) | payer OTHER, SELFPAY | PROVIDERS: PCP Physician Assistant; Visit Provider Physician Assistant | DX: Z00.00 Encounter for general adult medical examination without abnormal findings (principal); F41.1 Generalized anxiety disorder; F33.1 Major depressive disorder, recurrent, moderate; E66.811 Obesity, class 1; F10.20 Alcohol dependence, uncomplicated; Z68.31 Body mass index [BMI] 31.0-31.9, adult | CPT/HCPCS: 96127 ==